=== PATIENT | male | born 1945 | race Caucasian/White ===

== ENCOUNTER 2016-04-22 14:10 | Outpatient (CLI) | payer MEDICARE, OTHER ==
[~2016-04-22 14:10] MED LIST: AMLO10TA2 PO; ASPI81TA2 PO; BLOO-129 IN; INSU100V10 SQ; INSU100V27 SQ; LISI1TAB9 PO; OMEP20CA4 PO
== END 2016-04-22 23:59 | disposition home or self-care (01) ==
LOC: WOU 14:10
PROVIDERS: ATTEND Podiatrist Foot & Ankle Surgery
DX: I70.238 Atherosclerosis of native arteries of right leg with ulceration of other part of lower leg (principal); L97.412 Non-pressure chronic ulcer of right heel and midfoot with fat layer exposed; E11.41 Type 2 diabetes mellitus with diabetic mononeuropathy
CPT/HCPCS: 93925-TC; A6452

== ENCOUNTER 2016-04-24 11:45 | Outpatient (CLI) | payer MEDICARE, OTHER | END 2016-04-24 23:59 | disposition home or self-care (01) | LOC: WOU 11:45 | PROVIDERS: ATTEND Podiatrist Foot & Ankle Surgery | DX: E11.621 Type 2 diabetes mellitus with foot ulcer (principal); I96 Gangrene, not elsewhere classified; L97.412 Non-pressure chronic ulcer of right heel and midfoot with fat layer exposed; E11.42 Type 2 diabetes mellitus with diabetic polyneuropathy; Z83.3 Family history of diabetes mellitus; I10 Essential (primary) hypertension; Z88.0 Allergy status to penicillin; Z89.421 Acquired absence of other right toe(s) | CPT/HCPCS: 11042; A6197; A6207; A6402 ×2 ==

== ENCOUNTER 2016-05-08 10:45 | Outpatient (CLI) | payer MEDICARE, OTHER | END 2016-05-08 23:59 | disposition home or self-care (01) | LOC: WOU 10:45 | PROVIDERS: ATTEND Podiatrist Foot & Ankle Surgery | DX: E11.621 Type 2 diabetes mellitus with foot ulcer (principal); L97.412 Non-pressure chronic ulcer of right heel and midfoot with fat layer exposed; E11.42 Type 2 diabetes mellitus with diabetic polyneuropathy; R60.0 Localized edema; Z89.421 Acquired absence of other right toe(s) | CPT/HCPCS: 11042; A6402; A6197 ==

== ENCOUNTER 2016-05-15 13:00 | Outpatient (CLI) | payer MEDICARE, OTHER | END 2016-05-15 23:59 | disposition home or self-care (01) | LOC: WOU 13:00 | PROVIDERS: ATTEND Podiatrist Foot & Ankle Surgery | DX: E11.621 Type 2 diabetes mellitus with foot ulcer (principal); L97.412 Non-pressure chronic ulcer of right heel and midfoot with fat layer exposed; E11.42 Type 2 diabetes mellitus with diabetic polyneuropathy; Z89.421 Acquired absence of other right toe(s); I87.321 Chronic venous hypertension (idiopathic) with inflammation of right lower extremity; Z91.19 Patient's noncompliance with other medical treatment and regimen | CPT/HCPCS: 11042; A6197; A6452 ==

== ENCOUNTER 2016-05-29 13:58 | Outpatient (CLI) | payer MEDICARE, OTHER | END 2016-05-29 23:59 | disposition home or self-care (01) | LOC: WOU 13:58 | PROVIDERS: ATTEND Podiatrist Foot & Ankle Surgery | DX: E11.621 Type 2 diabetes mellitus with foot ulcer (principal); L97.412 Non-pressure chronic ulcer of right heel and midfoot with fat layer exposed; E11.42 Type 2 diabetes mellitus with diabetic polyneuropathy; S90.811A Abrasion, right foot, initial encounter; X58.XXXA Exposure to other specified factors, initial encounter; Y92.89 Other specified places as the place of occurrence of the external cause; Z88.0 Allergy status to penicillin; Z83.3 Family history of diabetes mellitus; Z90.49 Acquired absence of other specified parts of digestive tract; I10 Essential (primary) hypertension; Z79.4 Long term (current) use of insulin; Z79.84 Long term (current) use of oral hypoglycemic drugs | CPT/HCPCS: 11042; A6402; A6197 ==

== ENCOUNTER 2016-06-05 11:07 | Outpatient (CLI) | payer MEDICARE, OTHER | END 2016-06-05 23:59 | disposition home or self-care (01) | LOC: WOU 11:07 | PROVIDERS: ATTEND Podiatrist Foot & Ankle Surgery | DX: E11.621 Type 2 diabetes mellitus with foot ulcer (principal); E11.610 Type 2 diabetes mellitus with diabetic neuropathic arthropathy; S90.811D Abrasion, right foot, subsequent encounter; S80.811A Abrasion, right lower leg, initial encounter; X58.XXXA Exposure to other specified factors, initial encounter; Y92.89 Other specified places as the place of occurrence of the external cause; Z89.421 Acquired absence of other right toe(s); I10 Essential (primary) hypertension; Z83.3 Family history of diabetes mellitus; E11.42 Type 2 diabetes mellitus with diabetic polyneuropathy | CPT/HCPCS: 11042; A6197 ×2; A6402; G0463 ==

== ENCOUNTER 2016-06-12 11:15 | Outpatient (CLI) | payer MEDICARE, OTHER | END 2016-06-12 23:59 | disposition home or self-care (01) | DX: E11.621 Type 2 diabetes mellitus with foot ulcer (principal); L97.412 Non-pressure chronic ulcer of right heel and midfoot with fat layer exposed; S90.811D Abrasion, right foot, subsequent encounter; X58.XXXD Exposure to other specified factors, subsequent encounter; E11.42 Type 2 diabetes mellitus with diabetic polyneuropathy; Z89.421 Acquired absence of other right toe(s); I87.321 Chronic venous hypertension (idiopathic) with inflammation of right lower extremity; Z83.3 Family history of diabetes mellitus; Z88.0 Allergy status to penicillin; Z79.4 Long term (current) use of insulin | CPT/HCPCS: 11042; A6253; A6402 ×2 ==

== ENCOUNTER 2016-06-16 11:06 | Outpatient (CLI) | payer MEDICARE, OTHER | END 2016-06-16 23:59 | disposition home or self-care (01) | LOC: WOU 11:06 | PROVIDERS: ATTEND Podiatrist Foot & Ankle Surgery | DX: E11.621 Type 2 diabetes mellitus with foot ulcer (principal); L97.412 Non-pressure chronic ulcer of right heel and midfoot with fat layer exposed; S90.811D Abrasion, right foot, subsequent encounter; X58.XXXD Exposure to other specified factors, subsequent encounter; I87.321 Chronic venous hypertension (idiopathic) with inflammation of right lower extremity; Z89.421 Acquired absence of other right toe(s); E11.42 Type 2 diabetes mellitus with diabetic polyneuropathy; I10 Essential (primary) hypertension; Z88.0 Allergy status to penicillin; Z79.82 Long term (current) use of aspirin; Z79.4 Long term (current) use of insulin | CPT/HCPCS: 29445; A6197 ×2; A6253; A6402 ==

== ENCOUNTER 2016-06-23 13:10 | Outpatient (CLI) | payer MEDICARE, OTHER | END 2016-06-23 23:59 | disposition home or self-care (01) | LOC: WOU 13:10 | PROVIDERS: ATTEND Podiatrist Foot & Ankle Surgery | DX: L97.414 Non-pressure chronic ulcer of right heel and midfoot with necrosis of bone (principal); I10 Essential (primary) hypertension; E11.42 Type 2 diabetes mellitus with diabetic polyneuropathy; S90.811D Abrasion, right foot, subsequent encounter; X58.XXXD Exposure to other specified factors, subsequent encounter; I87.321 Chronic venous hypertension (idiopathic) with inflammation of right lower extremity; Z89.412 Acquired absence of left great toe | CPT/HCPCS: 11044; 87070; 87077; 87186; A6253; A6402 ==

== ENCOUNTER 2016-06-26 13:06 | Outpatient (CLI) | payer MEDICARE, OTHER | END 2016-06-26 23:59 | disposition home or self-care (01) | LOC: WOU 13:06 | PROVIDERS: ATTEND Podiatrist Foot & Ankle Surgery | DX: E11.621 Type 2 diabetes mellitus with foot ulcer (principal); L97.412 Non-pressure chronic ulcer of right heel and midfoot with fat layer exposed; S90.811D Abrasion, right foot, subsequent encounter; X58.XXXD Exposure to other specified factors, subsequent encounter; Z88.0 Allergy status to penicillin; Z83.3 Family history of diabetes mellitus; I10 Essential (primary) hypertension; Z89.421 Acquired absence of other right toe(s); E11.41 Type 2 diabetes mellitus with diabetic mononeuropathy; E11.610 Type 2 diabetes mellitus with diabetic neuropathic arthropathy | CPT/HCPCS: 11044; A6253; A6402; 11043 ==

== ENCOUNTER 2016-07-03 10:38 | Outpatient (CLI) | payer MEDICARE, OTHER | END 2016-07-03 23:59 | disposition home or self-care (01) | LOC: WOU 10:38 | PROVIDERS: ATTEND Podiatrist Foot & Ankle Surgery | DX: E11.621 Type 2 diabetes mellitus with foot ulcer (principal); L97.414 Non-pressure chronic ulcer of right heel and midfoot with necrosis of bone; L97.412 Non-pressure chronic ulcer of right heel and midfoot with fat layer exposed; E11.42 Type 2 diabetes mellitus with diabetic polyneuropathy; S90.415A Abrasion, left lesser toe(s), initial encounter; W45.8XXA Other foreign body or object entering through skin, initial encounter; Y92.89 Other specified places as the place of occurrence of the external cause; E11.610 Type 2 diabetes mellitus with diabetic neuropathic arthropathy; Z89.421 Acquired absence of other right toe(s); I87.321 Chronic venous hypertension (idiopathic) with inflammation of right lower extremity; Z88.0 Allergy status to penicillin | CPT/HCPCS: 11044; A6253; A6402 ==

== ENCOUNTER 2016-07-10 12:52 | Outpatient (CLI) | payer MEDICARE, OTHER | END 2016-07-10 23:59 | disposition home or self-care (01) | LOC: WOU 12:52 | PROVIDERS: ATTEND Podiatrist Foot & Ankle Surgery | DX: E11.621 Type 2 diabetes mellitus with foot ulcer (principal); L97.414 Non-pressure chronic ulcer of right heel and midfoot with necrosis of bone; E11.42 Type 2 diabetes mellitus with diabetic polyneuropathy; E11.610 Type 2 diabetes mellitus with diabetic neuropathic arthropathy; Z89.421 Acquired absence of other right toe(s); S90.415D Abrasion, left lesser toe(s), subsequent encounter; X58.XXXD Exposure to other specified factors, subsequent encounter; I10 Essential (primary) hypertension; I87.321 Chronic venous hypertension (idiopathic) with inflammation of right lower extremity | CPT/HCPCS: 11044; 11047; A6253; A6402 ==

== ENCOUNTER 2016-07-17 13:20 | Outpatient (CLI) | payer MEDICARE, OTHER | END 2016-07-17 23:59 | disposition home or self-care (01) | LOC: WOU 13:20 | PROVIDERS: ATTEND Podiatrist Foot & Ankle Surgery | DX: E11.621 Type 2 diabetes mellitus with foot ulcer (principal); L97.413 Non-pressure chronic ulcer of right heel and midfoot with necrosis of muscle; Z89.421 Acquired absence of other right toe(s); L60.3 Nail dystrophy; I10 Essential (primary) hypertension; E11.42 Type 2 diabetes mellitus with diabetic polyneuropathy; I87.321 Chronic venous hypertension (idiopathic) with inflammation of right lower extremity; E11.610 Type 2 diabetes mellitus with diabetic neuropathic arthropathy | CPT/HCPCS: 11043; A6402; A6452 ==